=== PATIENT | male | born 1995 ===

== ENCOUNTER 2025-06-18 03:28 | Emergency (ER) | payer MEDICAID, OTHER ==
[~2025-06-18] VITALS: Ht 172.7 cm; Wt 100.0 kg
[2025-06-18 03:39] VITALS: BP 136/98; PULSE 85; RESP 16; TEMP 97.9; O2SAT 96
[2025-06-18] MEDS ORDERED: CLOT-32 TOP (03:43)
--- NOTE | 2025-06-18 03:43 | ED.PDOC ---
History of Present Illness(SKN HPI Comments 29-YEAR-OLD MALE PRESENTS TO ER WITH COMPLAINTS OF RASH X2 WEEKS. PATIENT REPORTS HE HAS BEEN EXPERIENCING A RED ITCHY/BURNING RASH TO INNER THIGHS AND GROIN X2 WEEKS. REPORTS HE HAS BEEN USING A TOPICAL ANTIBIOTIC CREAM WITHOUT RELIEF AND PRESENTS TO ER AMBULATORY ON ARRIVAL, WITH STEADY GAIT, IN NO DIS TRESS. DENIES FEVER, SKIN DRAINAGE, EXPOSURE TO STD, TESTICULAR PAIN OR ANY FURTHER SYMPTOMS/COMPLAINTS Chief Complaint: Rash Time Seen by MD: 03:29 Primary Care Provider: UNKNOWN History of Present Illness: Nurses Notes, Medications, Allergies Allergies: Coded Allergies: NO KNOWN ALLERGIES (Unverified , 06/18/25) Home Meds Active Scripts Clotrimazole (Lotrimin Af) 1 % Cre, 1 APPLIC TOP BID for 14 Days, #1 CRE 0 Refills Prov:QUETA CONTRERAS 06/18/25 Information Source: Patient Mode of Arrival: Ambulatory Past Medical History PAST MEDICAL HISTORY: Denies Surgical History: Denies all surgeries Family History Family History: Unknown Social History Smoker: Non-Smoker Alcohol: Denies ETOH Use Drugs: Denies Drug Use Lives In: Home Constitutional: denies: chills, diaphoresis, fatigue, fever, malaise, sweats, weakness, others EENTM: denies: blurred vision, double vision, ear bleeding, ear discharge, ear drainage, ear pain, ear ringing, eye pain, eye redness, hearing loss, mouth pain, mouth swelling, nasal discharge, nose bleeding, nose congestion, nose pain, photophobia, tearing, throat pain, throat swelling, voice changes, others Respiratory: denies: cough, hemoptysis, orthopnea, SOB at rest, shortness of b reath, SOB with excertion, stridor, wheezing, others Cardiovascular: denies: chest pain, dizzy spells, diaphoresis, Dyspnea on exertion, edema, irregular heart beat, left arm pain, lightheadedness, palpitations, PND, syncope, others Gastrointestinal: denies: abdomen distended, abdominal pain, blood streaked bowels, constipated, diarrhea, dysphagia, difficulty swallowing, hematemesis, melena, nausea, poor appetite, poor fluid intake, rectal bleeding, rectal pain, vomiting, others Genitourinary: denies: burning, dysuria, flank pain, frequency, hematuria, incontinence, penile discharge, penile sore, pain, testicle pain, testicle swelling, urgency, others Neurological: denies: dizziness, fainting, headache, left sided numbness, left sided weakness, numbness, paresthesia, pre-existing deficit, right sided numbness, right sided weakness, seizure, speech problems, tingling, tremors, weakness, others Musculoskeletal: denies: back pain, gout, joint pain, joint swelling, muscle pain, muscle stiffness, neck pain, others Integumetry: reports: others (As stated in HPI) Allergic/Immunocompromised: reports: others (As stated in HPI) Hematologic/Lymphatic: denies: anemia, blood clots, easy bleeding, easy bruising, swollen glands, others Endocrine: denies: excessive hunger, excessive sweating, excessive thirst, excessive urination, flushing, intolerance to cold, intolerance to heat, unexplained weight gain, unexplained weight loss, others Psychiatric: denies: anxiety, bipolar disorder, depression, hopeless, panic disorder, schizophrenia, sleepless, suicidal, others Physical Exam General Appearance: No Apparent Distress, Obese HEENT: PERRL/EOMI Neck: Full Range of Motion, Non-Tender, Normal Respiratory: Chest Non-Tender, Lungs Clear, No Accessory Muscle Use, No Respiratory Distress, Normal Breath Sounds Cardiovascular: No Murmur, No Gallop, Regular Rate/Rhythm Breast Exam: Deferred Gastrointestinal: Non Tender, No Pulsatile Mass, Soft Genitalia: Other (Erythematous, well-demarcated scaly rash to bilateral inguinal folds/medial thighs noted. No drainage, fluctuance or induration appreciated) Pelvic: Deferred Rectal: Deferred Extremities: Normal capillary refill, Normal range of motion Neurologic: Alert, No Motor Deficits, Normal Affect, Normal Mood, No Sensory Deficits Cerebellar Function: Normal Reflexes: Normal Skin: Dry, Warm Peripheral Pulses: 2+ Radial (R), 2+ Radial (L), 2+ Brachial (R), 2+ Brachial (L) Lymphatic: No Adenopathy Was a procedure done? Was a procedure done?: No Sedation Sedation?: No Differential Diagnosis (INTG) Differential Diagnosis: Abrasion Differential Diagnosis: Abscess, Contact Dermatitis Differential Diagnosis: Cellulitis, Other (STD) X-Ray, Labs, Meds, VS Vital Signs Date Time Temp Pulse Resp B/P (MAP) Pulse Ox O2 Delivery O2 Flow Rate FiO2 06/18/25 03:39 97.9 85 16 136/98 (111) 96 97.9 06/18/25 03:30 97.9 85 16 136/98 96 97.9 Advised to keep area clean and completely dry Advised to discontinue use of topical antibiotic cream Advised to follow up with PCP in 1-2 days Patient verbalized understanding and agreeable with current plan of care Advised to return to ER immediately if symptoms worsen Time of 1ST Reevaluation: 03:20 Reevaluation 1ST: N/A Patient Education/Counseling: Diagnosis, Treatment, Prognosis, Need For Follow Up Family Education/Counseling: No Family Present SEPSIS Sepsis Screen Date sepsis recognized/suspect: Jun 18, 2025 Time Sepsis recognized/suspect: 333 Recent Procedure: No On Antibiotic Therapy: No Respiratory Rate >20: No Heart Rate >90: No Temp<36 C (96.8 F) or >38.3 C: No SBP <90 or MAP <65 mmHG: No New Acute Mental Status Change: No Is the patient on CPAP, BIPAP,: No Vital Signs Date Time Temp Pulse Resp B/P (MAP) Pulse Ox O2 Delivery O2 Flow Rate FiO2 06/18/25 03:39 97.9 85 16 136/98 (111) 96 97.9 06/18/25 03:30 97.9 85 16 136/98 96 97.9 Departure 1 Departure Time of Disposition: 03:41 Impression: Primary Impression: Tinea cruris Disposition: 01 HOME / SELF CARE / HOMELESS Condition: Stable e-Prescriptions Clotrimazole (Lotrimin Af) 1 % Cre 1 APPLIC TOP BID for 14 Days, #1 CRE 0 Refills Prov: QUETA CONTRERAS 06/18/25 Discharged With: Self Critical Care Note Critical Care Time?: No Stability Stability form required: No Heart Score Heart Score: Heart Score Response (Comments) Value History N/A 0 EKG N/A 0 Age N/A 0 Risk Factors N/A 0 Troponin N/A 0 Total 0 QUETA CONTRERAS Jun 18, 2025 03:43
== END 2025-06-18 03:50 | disposition home or self-care (01) ==
LOC: ER 03:28
DX: B35.6 Tinea cruris (principal); Z79.899 Other long term (current) drug therapy